=== PATIENT | female | born 1980 | race Two or more races ===

== ENCOUNTER 2020-01-09 17:09 | Emergency (ER) | payer SELFPAY ==
[~2020-01-09] VITALS: Ht 165.1 cm; Wt 73.5 kg
--- NOTE | 2020-01-09 17:20 | NUR ---
patient came in to the er c/o dysuria, burning sensation, itching x 3 weeks, 7/10 pain scale. Onr oom air, breaething evenly and unlabored. connected to the monitor and pulse ox. kept comfortable, will continue to monitor accordingly.
--- NOTE | 2020-01-09 17:21 | NUR ---
urine colelcted and sent to lab
[2020-01-09 17:59] LABS: APPEARANCE,URINE Clear (CLEAR); BILIRUBIN,URINE Negative (NEGATIVE); BLOOD, URINE Negative Ery/uL (NEGATIVE); COLOR,URINE Yellow (YELLOW); KETONES,URINE Negative (NEGATIVE); LEUKOCYTE ESTERASE ,URINE Negative (NEGATIVE); NITRITE, URINE Negative (NEGATIVE); PH,URINE 7.5 (5.0-8.0); PROTEIN,URINE Negative (NEGATIVE); UGLUCOSE Negative (NEGATIVE); UROBILINOGEN,URINE 0.2 EU/dL (0.2)
[2020-01-09 18:16] VITALS: BP 128/81
--- NOTE | 2020-01-09 18:17 | NUR ---
Patient discharged to home in stable condition. Written and verbal after care instructions given. Patient verbalizes understanding of instruction.
== END 2020-01-09 18:17 | disposition home or self-care (01) ==
LOC: ER 17:14
DX: B37.3 Candidiasis of vulva and vagina (principal)
CPT/HCPCS: 81000-TC; 84703-TC; 87210-TC

== ENCOUNTER 2020-06-08 15:19 | Emergency (ER) | payer MEDICAID, OTHER ==
[~2020-06-08] VITALS: Ht 165.1 cm; Wt 68.5 kg
--- NOTE | 2020-06-08 15:40 | NUR ---
pt bib self c/o vaginal spotting and cramping x 8 days, G1, P0, A0. vs checked.
[2020-06-08 16:38] LABS: BASOPHILS % (AUTO) 0.2 % (0.0-2.0); EOSINOPHILS % (AUTO) 1.5 % (0.0-6.0); HEMATOCRIT 43 % (33-45); HEMOGLOBIN 14.1 g/dL (11.5-14.8); LYMPHOCYTES # (AUTO) 1.2 /CMM (0.8-4.8); LYMPHOCYTES % (AUTO) 14.5 % (20.0-44.0); MEAN CORPUSCULAR HGB CONC 33 g/dl (31.0-36.0); MEAN CORPUSCULAR VOLUME 90 fL (82-100); MONOCYTES # (AUTO) 0.5 /CMM (0.1-1.30); MONOCYTES % (AUTO) 5.5 % (2.0-12.0); NEUTROPHILS # (AUTO) 6.6 /CMM (1.8-8.9); NEUTROPHILS % (AUTO) 78.3 % (43.0-81.0); PLATELET COUNT (AUTO) 285 /CMM (150-450); RED BLOOD CELL COUNT(AUTO) 4.75 MIL/uL (4.0-5.2); WHITE BLOOD COUNT (AUTO) 8.5 K/uL (4.3-11.0)
--- NOTE | 2020-06-08 16:45 | NUR ---
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
[2020-06-08 17:01] LABS: BILIRUBIN,URINE NEGATIVE (NEGATIVE); BLOOD, URINE NEGATIVE Ery/uL (NEGATIVE); COLOR,URINE YELLOW (YELLOW); LEUKOCYTE ESTERASE ,URINE NEGATIVE (NEGATIVE); NITRITE, URINE NEGATIVE (NEGATIVE); PH,URINE 5.5 (5.0-8.0); PROTEIN,URINE NEGATIVE (NEGATIVE); UGLUCOSE NEGATIVE (NEGATIVE); UROBILINOGEN,URINE 0.2 EU/dL (0.2)
[2020-06-08 19:14] VITALS: BP 138/87
== END 2020-06-08 19:14 | disposition home or self-care (01) ==
LOC: ER 15:29
DX: O20.8 Other hemorrhage in early pregnancy (principal); Z3A.20 20 weeks gestation of pregnancy
CPT/HCPCS: 36415; 76805-TC; 81001; 84702-TC; 85025-TC